=== PATIENT | male | born 1995 | race Caucasian/White ===

== ENCOUNTER 2017-11-26 14:33 | Emergency (ER) | payer OTHER ==
[2017-11-26 17:54] LABS: PLATELET COUNT 356 10^3/uL (150-400)
--- NOTE | 2017-11-26 18:24 | CPEKG ---
Heart Rate: 57 RR Interval: 1053 P-R Interval: 152 QRSD Interval: 92 QT Interval: 432 QTC Interval: 421 P [place]: 84 QRS [place]: 64 T Wave [place]: 54 EKG Severity - NORMAL ECG - EKG Impression: SINUS RHYTHM Electronically Signed By: Cj Elaine 01-Dec-2017 10:52:20
[2017-11-26 18:27] VITALS: O2SAT 97
--- NOTE | 2017-11-26 18:29 | EDPHY ---
H & P Smoking Status: Current every day smoker HPI/ROS: Chief complaint: Chest pain History of present illness: This is a 22-year-old male who presents to the emergency department for evaluation of chest pain. Patient reports the onset of symptoms approximately 2 hours prior to arrival. He was outside in the cold , took a deep breath and had the sudden onset of the pain. The pain is on the right side of the chest. It is worse with movement or deep breathing. He denies other associated signs or symptoms including no shortness of breath, no cough, no fevers or other cold symptoms. No history of trauma. He has never had similar. Review of systems: A 10 point review of systems was obtained and other than described above was negative (Alejandro Estrella) Physical Exam: General Appearance: Alert, nontoxic. Eyes: Pupils equal and round no pallor or injection. ENT, Mouth: Mucous membranes moist. Respiratory: There are no retractions, lungs are clear to auscultation. Cardiovascular: Regular rate and rhythm. Gastrointestinal: Abdomen is soft and non tender, no masses, bowel sounds normal. Neurological: Alert and oriented x4. Strength and sensation intact and symmetrical. Skin: Warm and dry, no rashes. Musculoskeletal: No tenderness to palpation of the chest wall. No crepitus or subcutaneous air. Discomfort when he moves around reported. Extremities are symmetrical, full range of motion. Psychiatric: Patient is oriented X 3, there is no agitation. (Alejandro Estrella) Constitutional: Initial Vital Signs Temperature (C) 36.6 C 11/26/17 14:45 Heart Rate 70 11/26/17 14:45 Respiratory Rate 18 11/26/17 14:45 Blood Pressure 136/94 H 11/26/17 14:45 O2 Sat (%) 98 11/26/17 14:45 O2 Delivery Mode Room Air Allergies/Adverse Reactions: No Known Allergies Allergy (Unverified 11/26/17 14:45) MDM/Departure - [facility] Imaging: I viewed and interpreted images myself - [facility] ED Course/Re-evaluation: Patient discussed with my secondary supervising physician Dr. Nafisa Valencia. Patient presents to the emergency room for left-sided chest pain. On presentation he is nontoxic. Afebrile and vital signs are stable. Blood studies , EKG and chest x-ray unremarkable. I believe patient is appropriate for discharge home. Home care is discussed. He is to follow up with a primary care doctor for recheck. Return precautions are given. Patient voiced understanding and agreement with plan. (Alejandro Estrella) The patient was evaluated and managed by the Physician Core Java Engineer. I discussed the patient's presentation and course with the physician preschool assistant teacher and agree with the evaluation. My co-signature indicates that I have reviewed this chart and I agree with the findings and plan of care as documented. I am the secondary supervising physician. (Nafisa Valencia) Differential Diagnosis: Included but not limited to musculoskeletal pain, pleurisy, pneumothorax, pulmonary embolism, pulmonary infections, cardiac dysrhythmia, unlikely ACS ( Alejandro Estrella) - Depart Disposition: Home, Routine, Self-Care Clinical Impression: Chest pain Qualifiers: Chest pain type: chest pain on breathing Qualified Code(s): R07.1 - Chest pain on breathing; R07.81 - Pleurodynia Condition: Good Instructions: Chest Pain (ED) Additional Instructions: Follow-up with a primary care doctor for recheck Use ibuprofen 600 mg 3 times a day for the next 2-3 days for pain control If symptoms worsen or new symptoms develop return to the emergency room for recheck Referrals: NONE *PRIMARY CARE P,. [Primary Care Provider] - As per Instructions [facility],. [Clinic] - As per Instructions Humberto Machuca DO [Doctor of Osteopathy] - As per Instructions
[2017-11-26 18:47] VITALS: BP 123/67; PULSE 63; RESP 15; TEMP 98.4
== END 2017-11-26 18:47 | disposition home or self-care (01) ==
DX: R07.1 Chest pain on breathing (principal); F17.200 Nicotine dependence, unspecified, uncomplicated